=== PATIENT | female | born 1965 | race African-American/Black ===

== ENCOUNTER 2022-10-15 17:02 | Inpatient (IN) | payer MEDICAID ==
[~2022-10-15] VITALS: Ht 165.1 cm; Wt 61.5 kg
[2022-10-15] MEDS ORDERED: ACCU-CHEK COMFORT CURVE STRIP VI ONE (17:30)
[2022-10-15] MEDS ORDERED: SODIUM CHLORIDE 0.9% 1,000 ML IV ONE (17:30)
[2022-10-15] MEDS ORDERED: InsuLIN REG 1unit/0.01ml Soln (100units/ml) IV ONE (17:30)
[2022-10-15] MEDS ORDERED: hydrALAZINE HCL 20 MG/ML VL IV ONE ×2 (17:30→19:00)
[2022-10-15] MEDS ORDERED: cloNIDine HCL 0.1 MG TAB PO ONE (17:30)
[2022-10-15 19:05] LABS: Basophils # (auto) 0.1 10 ^3/uL (0-0.2); Basophils % (auto) 0.6 % (0.0-2.0); Eosinophils # (auto) 0 10 ^3/uL (0-0.8); Eosinophils % (auto) 0.2 % (0.0-7.0); Hematocrit 42.7 % (36.0-46.0); Hemoglobin 14.3 g/dL (12.2-16.2); Lymphocytes # (auto) 1.1 10 ^3/uL (0.4-5.4); Lymphocytes % (auto) 14.1 % (10.0-50.0); Mean Corpuscular Hemoglobin 27.9 pg (28.0-32.0); Mean Corpuscular Hgb Conc. 33.6 g/dL (32.0-36.0); Monocytes # (auto) 0.4 10 ^3/uL (0-1.3); Monocytes % (auto) 5.5 % (0.0-12.0); Neutrophils # (auto) 6.5 10 ^3/uL (1.6-8.6); Neutrophils % (auto) 79.6 % (37.0-80.0); Red Blood Cells 5.14 10^6/uL (4.0-5.20); Red Cell Distribution Width 12.9 % (11.8-14.3); White Blood Cell 8.1 10^3/uL (4.4-10.8)
[2022-10-15 19:32] LABS: Acetaminophen < 2.0 ug/mL (10-30); Salicylate 1.7 mg/dL (2.8-20.0)
[2022-10-15 19:36] LABS: Albumin 4.5 g/dL (3.4-5.0); Calcium 9.7 mg/dL (8.5-10.1); Potassium 3.9 mmol/L (3.5-5.1)
[2022-10-15 19:40] LABS: Bilirubin, Total 0.4 mg/dL (0.2-1.0); Total Protein 7.7 g/dL (6.4-8.2)
[2022-10-15] MEDS ORDERED: InsuLIN REG 1unit/0.01ml Soln (100units/ml) SC ONE (20:00)
[2022-10-15] MEDS ORDERED: MAALOX PLUS or MAALOX 30 ML PO PRN (22:15)
[2022-10-15] MEDS ORDERED: DOCUSATE SOD 100 MG CAP PO PRN (22:15)
[2022-10-15] MEDS ORDERED: MORPHINE SULFATE INJ 2 MG/ml SYRG IV PRN (22:15)
[2022-10-15] MEDS ORDERED: DEXTROSE (50%) 50ML SYRG IV PRN (22:15)
[2022-10-15] MEDS ORDERED: ONDANSETRON HCL 4 MG/2 ML VIAL IV PRN (22:15)
[2022-10-15] MEDS: SODIUM CHLORIDE 0.9% 1,000 ML IV SCH (23:06)
[2022-10-15] MEDS: ACETAMINOPHEN 325 MG TAB PO PRN (23:44)
[2022-10-16] MEDS: ACCU-CHEK COMFORT CURVE STRIP VI SCH ×7 (00:05→23:50)
[2022-10-16] MEDS: hydrALAZINE HCL 20 MG/ML VL IV PRN ×2 (00:06→14:54)
[2022-10-16 00:15] LABS: Urine Bacteria FEW /hpf (None Seen); Urine Blood Negative /uL (Negative); Urine Specific Gravity 1.034 (1.001-1.035); Urine WBC 14 /hpf (0 - 5)
[2022-10-16] MEDS: InsuLIN REG 1unit/0.01ml Soln (100units/ml) SC SCH ×4 (00:21→12:59)
[2022-10-16 00:50] LABS: Amphetamine Screen, Urine NEGATIVE (NEGATIVE)
[2022-10-16 01:03] LABS: Alcohol, Urine < 3.0 mg/dL (0-10); Barbiturate Scree,Urine NEGATIVE (NEGATIVE); Benzodiazephine Screen, Urine NEGATIVE (NEGATIVE); Cannabinoid Screen, Urine NEGATIVE (NEGATIVE); Cocaine Screen, Urine NEGATIVE (NEGATIVE); Opiate Scree,Urine NEGATIVE (NEGATIVE); Phencyclidine Screen, Urine NEGATIVE (NEGATIVE)
[2022-10-16] MEDS ORDERED: hydrALAZINE HCL 20 MG/ML VL IV SCH (07:00)
[2022-10-16 07:45] LABS: BUN/Creatinine Ratio 24.4; Calcium 9.2 mg/dL (8.5-10.1)
[2022-10-16 07:57] LABS: Basophils # (auto) 0.1 10 ^3/uL (0-0.2); Basophils % (auto) 0.8 % (0.0-2.0); Eosinophils # (auto) 0 10 ^3/uL (0-0.8); Eosinophils % (auto) 0.2 % (0.0-7.0); Hematocrit 40.8 % (36.0-46.0); Hemoglobin 13.8 g/dL (12.2-16.2); Lymphocytes # (auto) 2.4 10 ^3/uL (0.4-5.4); Lymphocytes % (auto) 24.6 % (10.0-50.0); Mean Corpuscular Hemoglobin 27.5 pg (28.0-32.0); Mean Corpuscular Hgb Conc. 33.8 g/dL (32.0-36.0); Mean Corpuscular Volume 81.3 fL (80.0-100.0); Monocytes % (auto) 10.6 % (0.0-12.0); Neutrophils # (auto) 6.1 10 ^3/uL (1.6-8.6); Neutrophils % (auto) 63.8 % (37.0-80.0); Nucleated Red Blood Cells % 0.1 %; Red Blood Cells 5.01 10^6/uL (4.0-5.20); Red Cell Distribution Width 12.6 % (11.8-14.3); White Blood Cell 9.6 10^3/uL (4.4-10.8)
[2022-10-16 08:00] LABS: Potassium 2.9 mmol/L (3.5-5.1)
[2022-10-16] MEDS: SODIUM CHLORIDE 0.9% 1,000 ML IV SCH ×2 (08:15→18:15)
[2022-10-16] MEDS: ACETAMINOPHEN 325 MG TAB PO PRN ×2 (08:19→14:55)
[2022-10-16] MEDS: HYDROcodone-ACET 5/325MG TAB PO PRN ×2 (10:30→20:55)
[2022-10-16] MEDS: LORazepam 0.5 MG TAB PO PRN (14:54)
[2022-10-16] MEDS ORDERED: cefTRIAXone 1GM/50ML D5W 50 ML IV ONE (15:45)
[2022-10-16] MEDS ORDERED: POTASSIUM EFFERVESENT TAB 25 MEQ PO ONE (16:00)
[2022-10-16] MEDS ORDERED: LOSARTAN POTASSIUM 50 MG TAB PO ONE (16:00)
[2022-10-16] MEDS ORDERED: hydrALAZINE HCL 20 MG/ML VL IV PRN ×2 (16:00→17:45)
[2022-10-16] MEDS ORDERED: HCTZ 25 MG TAB PO ONE (16:30)
[2022-10-16] MEDS ORDERED: LORazepam 0.5 MG TAB PO PRN (16:30)
[2022-10-16 17:30] VITALS: BP 173/100
[2022-10-16] MEDS ORDERED: ATORVASTATIN 20 MG TAB PO ONE (17:45)
[2022-10-16] MEDS ORDERED: ASPirin 81 mg TAB PO ONE (17:45)
[2022-10-16] MEDS ORDERED: POTASSIUM EFFERVESENT TAB 25 MEQ GT ONE (20:00)
[2022-10-16] MEDS: TEMAZEPAM 15 MG CAP PO PRN (20:55)
[2022-10-16 22:00] VITALS: BP 154/101
[2022-10-17] MEDS: HYDROcodone-ACET 5/325MG TAB PO PRN ×3 (03:05→21:13)
[2022-10-17] MEDS: ACCU-CHEK COMFORT CURVE STRIP VI SCH ×5 (04:19→21:55)
[2022-10-17] MEDS: SODIUM CHLORIDE 0.9% 1,000 ML IV SCH ×2 (04:24→13:40)
[2022-10-17 05:00] VITALS: BP 172/88
[2022-10-17 05:50] LABS: Basophils # (auto) 0.1 10 ^3/uL (0-0.2); Basophils % (auto) 0.8 % (0.0-2.0); Eosinophils # (auto) 0.1 10 ^3/uL (0-0.8); Eosinophils % (auto) 1.4 % (0.0-7.0); Hematocrit 41.1 % (36.0-46.0); Hemoglobin 13.6 g/dL (12.2-16.2); Lymphocytes # (auto) 1.6 10 ^3/uL (0.4-5.4); Lymphocytes % (auto) 25.9 % (10.0-50.0); Mean Corpuscular Hemoglobin 27.1 pg (28.0-32.0); Mean Corpuscular Hgb Conc. 33.1 g/dL (32.0-36.0); Mean Corpuscular Volume 81.9 fL (80.0-100.0); Monocytes # (auto) 0.7 10 ^3/uL (0-1.3); Monocytes % (auto) 10.8 % (0.0-12.0); Neutrophils # (auto) 3.9 10 ^3/uL (1.6-8.6); Neutrophils % (auto) 61.1 % (37.0-80.0); Nucleated Red Blood Cells % 0.2 %; Red Blood Cells 5.02 10^6/uL (4.0-5.20); White Blood Cell 6.4 10^3/uL (4.4-10.8)
[2022-10-17 06:06] LABS: Potassium 4.6 mmol/L (3.5-5.1)
[2022-10-17 06:11] LABS: Albumin 3.7 g/dL (3.4-5.0); BUN/Creatinine Ratio 29.7; Bilirubin, Total 0.8 mg/dL (0.2-1.0); Calcium 8.7 mg/dL (8.5-10.1); Total Protein 6.5 g/dL (6.4-8.2)
[2022-10-17 08:00] VITALS: BP 155/92
[2022-10-17] MEDS: ASPirin 81 mg TAB PO SCH (08:34)
[2022-10-17] MEDS: cefTRIAXone 1GM/50ML D5W 50 ML IV SCH (08:34)
[2022-10-17] MEDS ORDERED: HCTZ 25 MG TAB PO SCH (10:00)
[2022-10-17] MEDS ORDERED: LOSARTAN POTASSIUM 50 MG TAB PO SCH (10:00)
[2022-10-17] MEDS: LORazepam 0.5 MG TAB PO PRN (12:09)
[2022-10-17 13:24] VITALS: BP 177/95
[2022-10-17] MEDS ORDERED: DEXTROSE (50%) 50ML SYRG IV PRN (17:00)
[2022-10-17] MEDS: InsuLIN REG 1unit/0.01ml Soln (100units/ml) SC SCH (17:00)
[2022-10-17] MEDS ORDERED: InsuLIN REG 1unit/0.01ml Soln (100units/ml) SC ONE (17:00)
[2022-10-17] MEDS: metFORMIN HYDROCHLORIDE 500 MG TAB PO SCH (17:59)
[2022-10-17 20:00] VITALS: BP 146/91
[2022-10-17] MEDS: TEMAZEPAM 15 MG CAP PO PRN (21:13)
[2022-10-17] MEDS ORDERED: ATORVASTATIN 20 MG TAB PO SCH (22:00)
[2022-10-17] MEDS ORDERED: InsuLIN REG 1unit/0.01ml Soln (100units/ml) SC SCH (22:00)
[2022-10-17] MEDS ORDERED: INSULIN LANTUS (GLARGINE) 1 /0.01ml (100units/ml) SC SCH ×2 (22:00)
[2022-10-18] MEDS: SODIUM CHLORIDE 0.9% 1,000 ML IV SCH ×2 (00:15→09:46)
[2022-10-18 05:00] VITALS: BP 156/99
[2022-10-18] MEDS: HYDROcodone-ACET 5/325MG TAB PO PRN (06:22)
[2022-10-18 06:29] LABS: Basophils # (auto) 0.1 10 ^3/uL (0-0.2); Basophils % (auto) 1.5 % (0.0-2.0); Eosinophils # (auto) 0.1 10 ^3/uL (0-0.8); Eosinophils % (auto) 1.1 % (0.0-7.0); Hematocrit 41.2 % (36.0-46.0); Hemoglobin 13.9 g/dL (12.2-16.2); Lymphocytes # (auto) 2.1 10 ^3/uL (0.4-5.4); Lymphocytes % (auto) 27.3 % (10.0-50.0); Mean Corpuscular Hemoglobin 27.5 pg (28.0-32.0); Mean Corpuscular Hgb Conc. 33.6 g/dL (32.0-36.0); Mean Corpuscular Volume 81.9 fL (80.0-100.0); Monocytes # (auto) 0.8 10 ^3/uL (0-1.3); Monocytes % (auto) 10.8 % (0.0-12.0); Neutrophils # (auto) 4.5 10 ^3/uL (1.6-8.6); Neutrophils % (auto) 59.3 % (37.0-80.0); Red Blood Cells 5.03 10^6/uL (4.0-5.20); Red Cell Distribution Width 12.9 % (11.8-14.3); White Blood Cell 7.5 10^3/uL (4.4-10.8)
[2022-10-18] MEDS: ACCU-CHEK COMFORT CURVE STRIP VI SCH ×2 (06:31→11:30)
[2022-10-18] MEDS: InsuLIN REG 1unit/0.01ml Soln (100units/ml) SC SCH ×2 (06:42→11:30)
[2022-10-18 07:03] LABS: Potassium 3.5 mmol/L (3.5-5.1)
[2022-10-18 07:16] LABS: Albumin 3.9 g/dL (3.4-5.0); BUN/Creatinine Ratio 34.2; Bilirubin, Total 0.8 mg/dL (0.2-1.0); Calcium 9.3 mg/dL (8.5-10.1); Total Protein 7.3 g/dL (6.4-8.2)
[2022-10-18 08:00] VITALS: BP 146/91
[2022-10-18] MEDS: metFORMIN HYDROCHLORIDE 500 MG TAB PO SCH (08:03)
[2022-10-18] MEDS: cefTRIAXone 1GM/50ML D5W 50 ML IV SCH (08:04)
[2022-10-18 09:20] VITALS: BP 145/95
[2022-10-18] MEDS: ASPirin 81 mg TAB PO SCH (09:46)
[2022-10-18 13:00] VITALS: BP 131/77
== END 2022-10-18 17:00 | disposition left against medical advice (07) | DRG 420 ==
LOC: ER 17:02 → EDBD 17:02 → TELE 22:14 → TELE-WESTW 10-16 15:25
PROVIDERS: ADMIT Hospitalist; ATTEND Student in an Organized Health Care Education/Training Program
DX: E11.65 Type 2 diabetes mellitus with hyperglycemia (principal); E11.649 Type 2 diabetes mellitus with hypoglycemia without coma; I10 Essential (primary) hypertension; Z53.29 Procedure and treatment not carried out because of patient's decision for other reasons; Z20.822 Contact with and (suspected) exposure to COVID-19; F20.9 Schizophrenia, unspecified; Z59.00 Homelessness unspecified; Z91.199 Patient's noncompliance with other medical treatment and regimen due to unspecified reason
CPT/HCPCS: 36415; 36600; 70450; 70551; 71045; 80048; 80053; 80061; 80307; 80320; 80329; 81001; 82010; 82805; 82962; 83036; 83605; 83880; 84484; 85025; 85652; 86141; 87040; 87077; 87086; 87426; 87804; 92610; 93306; 93886; 96361; 96372; 96374; 96376; 99291; G0378; J0696; J1815